=== PATIENT | male | born 1970 | race African-American/Black ===

== ENCOUNTER 2021-10-29 10:44 | Day surgery (SDC) | payer OTHER ==
[2021-10-24 10:02] VITALS: BMI 34.2
[2021-10-29 13:30] VITALS: TEMP 97.6
[2021-10-29 13:39] VITALS: BP 130/74; PULSE 75; RESP 17
== END 2021-10-29 12:50 | disposition home or self-care (01) ==
LOC: FASU-ENDO 10:44
PROVIDERS: ATTEND Internal Medicine Gastroenterology
PROC: 0DJD8ZZ Inspection of Lower Intestinal Tract, Via Natural or Artificial Opening Endoscopic (ICD-10-PCS; principal; 2021-10-29 11:43)
DX: Z12.11 Encounter for screening for malignant neoplasm of colon (principal)